=== PATIENT | female | born 1930 | race Caucasian/White ===

== ENCOUNTER → 2016-06-25 | Outpatient (CLI) | payer MEDICARE, OTHER ==
[2016-06-25 08:57] LABS: BILIRUBIN NEGATIVE (NEGATIVE); BLOOD NEGATIVE (NEGATIVE); CLARITY SL CLOUDY (CLEAR); COLOR YELLOW (YELLOW); GLUCOSE NEGATIVE (NEGATIVE); KETONE NEGATIVE (NEGATIVE); LEUKO ESTERASE 2+ (NEGATIVE); NITRITE POSITIVE (NEGATIVE); PH 5.5 (5.0-9.0); PROTEIN NEGATIVE (NEGATIVE); SPECIFIC GRAVITY 1.025 (1.005-1.030); UROBILINOGEN 0.2 E.U./dl (0.2-1.0)
[2016-06-25 09:12] LABS: BACTERIA 4+; RBC 0-2 rbc/hpf (0-2); URINE REFLEX COMMENT YES (NO); WBC 31-40 wbc/hpf (0-5)
[2016-06-25 09:18] LABS: URINE TP/CRE RATIO 0.1 (<0.21)
[2016-06-25 09:19] LABS: ALBUMIN 3.8 gm/dl (3.1-4.5); BUN 22 mg/dl (7-24); CARBON DIOXIDE 29 mmol/L (21-32); CHLORIDE 105 mmol/L (98-107); EST GLOM FILT AFRICAN AMERICAN > 60 ml/min; GLUCOSE 144 mg/dL (65-99); MAGNESIUM 1.8 mg/dL (1.5-2.1); PHOSPHOROUS 3.5 mg/dL (2.5-4.9); SODIUM 144 mmol/L (136-145)
[2016-06-25 09:30] LABS: PTH INTACT 97.3 pg/mL (14.0-72.0); VITAMIN D, 25-HYDROXY 54.7 ng/mL (30-100)
== END | disposition home or self-care (01) ==
LOC: LAB 02:17 → US 10:00
PROVIDERS: Internal Medicine Nephrology
DX: N18.3 Chronic kidney disease, stage 3 (moderate) (principal); N28.1 Cyst of kidney, acquired

== ENCOUNTER 2017-03-09 21:59 | Inpatient (IN) | payer MEDICARE, OTHER ==
[~2017-03-09] VITALS: Ht 170.1 cm; Wt 73.9 kg
--- NOTE | ~2017-03-09 | PR ---
[place], [place] PROGRESS NOTE NAME: ATIF PATEL UNIT #: [id number] ROOM: 404 DOCTOR: WEST FERNANDEZ,YIN BIRTHDATE: [birth year] DOS: 03/10/2017 REASON FOR VISIT: Abnormal EKG and syncope. SUBJECTIVE: The patient is feeling better today. Denies any chest pain, shortness of breath or dizziness. No fever and chills. No nausea or vomiting. No PND, no orthopnea. REVIEW OF SYSTEMS: Review of the 8 systems negative except as mentioned above. PHYSICAL EXAMINATION: VITAL SIGNS: Blood pressure 140/72, pulse 62 and respirations 18. RHYTHM STRIPS: Patient in sinus rhythm. Patient had one episode of nonsustained ventricular tachycardia around 7:00 p.m. yesterday, lasted about 3 seconds. GENERAL: Alert, comfortable, in no acute distress. HEENT: Pupils are round and equal. No jaundice. Tongue was moist. NECK: Supple, nondistended, no carotid bruit. CHEST: Symmetrical, nontender. LUNGS: Clear to auscultation bilaterally. HEART: Regular rhythm, no S3, grade 1/6 systolic murmur. ABDOMEN: Bowel sounds normal, nontender. EXTREMITIES: Showed no edema. Distal pulses palpable. SKIN: Warm and dry. No cyanosis, no clubbing. NEUROLOGIC: No focal neurologic deficit. GENITOURINARY: Deferred. Medications and labs reviewed. IMPRESSION: 1. Syncope, etiology unknown, possible hypotension versus bradyarrhythmia: 2. Nonsustained ventricular tachycardia, asymptomatic. 3. Left bundle branch block. 4. Hypertension. 5. Dyslipidemia. RECOMMENDATIONS: Her stress test and echo results were reviewed with the patient and her family members who were at bedside. We will start low-dose beta blockers for her hypertension and nonsustained V-tach and monitor her heart rate and blood pressures. She will need outpatient cardiac event monitor to rule out any bradyarrhythmias or tachyarrhythmias . If she developed recurrent syncope, consider tilt table test and EP referral. I had a long discussion with the patient and her family members who were at bedside regarding her left bundle branch block and nonsustained V-tach and [place], [place] PROGRESS NOTE NAME: ATIF PATEL UNIT #: [id number] ROOM: 404 DOCTOR: WEST FERNANDEZ,YIN BIRTHDATE: [birth year] further cardiac testing such as event monitor and tilt table testing due to syncope. Family also aware that if she develops recurrent ventricular arrhythmias, she will need cardiac catheterization to rule out underlying coronary artery disease. Followup visit in 1 month after event monitor. Patient is advised to check her heart rate and blood pressures at home and also contact [facility] for any palpitations, chest pains, or syncope. YIN DODSON MD CM:GOPI [id number] YIN DODSON MD 03/12/17 0156 interface
--- NOTE | ~2017-03-09 | EKG ---
[place], [place] ELECTROCARDIOGRAM REPORT NAME: ATIF PATEL UNIT #: [id number] ROOM: 404 DOCTOR: WEST FERNANDEZ,YIN BIRTHDATE: [birth year] DOS: 03/09/2017 TIME: 2203 hours. IMPRESSION: 1. Sinus rhythm. 2. Left bundle-branch block. YIN DODSON MD CM:EKGRPT:ELECTROCARDIOGRAM REPORT [id number] [id number] YIN DODSON MD
--- NOTE | ~2017-03-09 | ST ---
[place], [place] EXERCISE STRESS TEST REPORT NAME: ATIF PATEL UNIT #: [id number] ROOM: 404 DOCTOR: WEST FERNANDEZ,YIN BIRTHDATE: [birth year] DOS: 03/10/2017 LEXISCAN STRESS TEST REASON FOR TEST: The patient's syncope and abnormal EKG. PHYSICAL EXAMINATION NECK: Supple. LUNGS: Clear anteriorly. HEART: Regular rhythm. PROTOCOL: Lexiscan protocol. Maximum heart rate 92, peak blood pressure 140/80. SYMPTOMS: The patient is chest pain free. EKG: Resting EKG showed left bundle branch block. Stress EKG showed no ischemia, no arrhythmias. CONCLUSION: Clinically, the patient is chest pain free. EKG nonischemic, underlying left bundle branch block. POST-STRESS COMPLICATIONS: None. The patient received total of 0.4 mg of Lexiscan. YIN DODSON MD CM:STRESS:EXERCISE STRESS TEST REPORT [id number] [id number] YIN DODSON MD
--- NOTE | ~2017-03-09 | CON ---
[place], [place] REPORT OF CONSULTATION NAME: ATIF PATEL UNIT #: [id number] ROOM: 404 DOCTOR: YIN DODSON MD BIRTHDATE: [birth year] DOS: 03/10/2017 REASON FOR CONSULTATION: Syncope and abnormal EKG. HISTORY OF PRESENT ILLNESS: The patient is an 86-year-old patient with history of hypertension, dyslipidemia, diabetes, came to the Emergency Room with "syncope." Apparently, she did not eat during the daytime and anticipating going to [facility]. However, in the evening around 4:00, she did eat and after that she walked to the sink to wash her dishes and then suddenly got dizzy and then passed out, but no seizure-like activity, no bladder or bowel incontinence. This is the first time she ever had this kind of episode. Prior to passing out, she denied any chest pain, palpitations, nausea, or vomiting. Only her complaint is "some room spinning feeling and dizziness." She was brought to the Emergency Room and EKG showed left bundle-branch block. She was admitted for further evaluation and Cardiology was consulted due to her left bundle branch block and her syncope. She denies any chest pain or palpitations. No edema, no orthopnea. She is very active at home. No recent fever or chills. No hemoptysis, no cough, no hematuria or dysuria. No headache. No blurred vision or double vision, no neurologic symptoms. No musculoskeletal symptoms. REVIEW OF SYSTEMS: Review of the 8 systems negative except as mentioned above. PAST MEDICAL HISTORY: 1. Hypertension. 2. Dyslipidemia. 3. Diabetes type 2. SOCIAL HISTORY: The patient does not smoke or drink, does not use illicit drugs. SURGICAL HISTORY: Nil contributory. FAMILY HISTORY: Nil contributory. HOME MEDICATIONS: Reviewed. ALLERGIES: Reviewed. PHYSICAL EXAMINATION: VITAL SIGNS: Blood pressure 159/75, pulse 68, respiratory rate is 18. GENERAL: Alert, comfortable, in no acute disease. HEENT: Pupils are round and equal. No jaundice. Tongue was moist and pharynx was clear. NECK: Supple, no distended neck veins, no carotid bruit. CHEST: Symmetrical, nontender. LUNGS: Clear to auscultation bilaterally. HEART: Regular rhythm, no S3, grade 1-2/6 systolic murmur at the left sternal border. No palpable thrills. ABDOMEN: Benign, nontender. Bowel sounds normal. EXTREMITIES: Showed no edema. Distal pulses are palpable. [place], [place] REPORT OF CONSULTATION NAME: ATIF PATEL UNIT #: [id number] ROOM: [facility] DOCTOR: YIN DODSON MD BIRTHDATE: [birth year] SKIN: Warm and dry. No cyanosis, no clubbing. NEUROLOGIC: The patient is alert, oriented. No focal neurologic deficit. RECTAL: Deferred. GENITOURINARY: Deferred. Medications reviewed. Her labs including EKG, CBC, chemistry and imaging studies reviewed. EKG showed normal sinus rhythm with left bundle branch block. Hemoglobin 11.3. The cardiac troponins are negative x 2. Potassium 3.8, magnesium 1.7. IMPRESSION: 1. Syncope, etiology unknown, to rule out any hypotension or bradycardia. 2. Left bundle branch block, relatively new, possibly new. 3. Hypertension. 4. Dyslipidemia. 5. Diabetes type 2. RECOMMENDATIONS: She denies any chest pain or shortness of breath. She has no adin or tachyarrhythmia since her admission. Lexiscan stress test to rule out ischemia and also a 2D echo for LV function and valvular function. If the stress test and echo unremarkable, she can be discharged home today and will schedule for outpatient at least 48-hour Holter monitor or 2-4 weeks CardioNet event monitor. The above treatment plan of stress test echo and the heart monitor were discussed with the patient's and all questions were answered. The patient is aware that if she noted to have any significant bradycardia, she will need a permanent pacemaker. There is no family at the bedside at the time of my examination. YIN DODSON MD CM:CONSTR:REPORT OF CONSULTATION 1335 03/10/17 1412 interface
[2017-03-09 22:11] VITALS: BP 159/82
[2017-03-09 22:58] LABS: BASO % 0.3 % (0.0-1.0); EOS # 0.2 10*3/uL (0.0-0.4); EOS % 2.4 % (1.0-4.0); HEMATOCRIT 37.4 % (37.0-47.0); HEMOGLOBIN 12.2 g/dl (12.0-16.0); LYMPH # 2.1 10*3/uL (1.3-4.4); LYMPH % 21.1 % (27.0-41.0); MEAN CELL VOLUME 84.4 fl (81.0-99.0); MEAN CORPUSCULAR HGB 27.5 pg (27.0-31.0); MEAN CORPUSCULAR HGB CONC 32.6 g/dl (33.0-37.0); MEAN PLATELET VOLUME 10.9 fl (9.6-12.3); MONO # 0.9 10*3/uL (0.1-1.0); MONO % 8.9 % (3.0-9.0); NEUT # 6.6 10*3/uL (2.3-7.9); NEUT % 66.9 % (47.0-73.0); PLATELET COUNT AUTOMATED 260 10*3/uL (130-400); RED BLOOD COUNT 4.43 10*6/uL (4.10-5.10); WHITE BLOOD COUNT 9.8 10*3/uL (4.8-10.8)
[2017-03-09 23:14] LABS: ACT PARTIAL THROMBO TIME 24.6 SECONDS (20.8-31.5)
[2017-03-09] MEDS ORDERED: METFORMIN850 MG PO (23:14)
[2017-03-09] MEDS ORDERED: ENALAPRIL10 MG PO (23:15)
[2017-03-09] MEDS ORDERED: LOVASTATIN40 MG PO (23:16)
[2017-03-09 23:18] VITALS: BP 170/83
[2017-03-09 23:18] LABS: ALBUMIN 3.7 gm/dl (3.1-4.5); ALKALINE PHOSPHATASE 104 U/L (45-117); BUN 18 mg/dl (7-24); CHLORIDE 105 mmol/L (98-107); CREATININE 0.96 mg/dL (0.55-1.02); POTASSIUM 4.3 mmol/L (3.5-5.1); SGOT/AST 18 IU/L (3-35); SGPT/ALT 16 U/L (12-78); SODIUM 139 mmol/L (136-145); TOTAL PROTEIN 7.2 gm/dL (6.4-8.2)
[2017-03-09 23:19] LABS: TROPONIN I < 0.015 ng/ml (<0.045)
[2017-03-09 23:55] VITALS: BP 152/83
[2017-03-10] VITALS: BP 134/98; BP 149/68
[2017-03-10 03:04] LABS: BASO % 0.3 % (0.0-1.0); EOS # 0.1 10*3/uL (0.0-0.4); EOS % 1.1 % (1.0-4.0); HEMOGLOBIN 11.3 g/dl (12.0-16.0); LYMPH # 1.7 10*3/uL (1.3-4.4); LYMPH % 15.3 % (27.0-41.0); MEAN CELL VOLUME 84.5 fl (81.0-99.0); MEAN CORPUSCULAR HGB 27.3 pg (27.0-31.0); MEAN CORPUSCULAR HGB CONC 32.3 g/dl (33.0-37.0); MONO # 0.9 10*3/uL (0.1-1.0); MONO % 8.1 % (3.0-9.0); NEUT # 8.5 10*3/uL (2.3-7.9); NEUT % 74.8 % (47.0-73.0); PLATELET COUNT AUTOMATED 251 10*3/uL (130-400); RED BLOOD COUNT 4.14 10*6/uL (4.10-5.10); RED CELL DISTRI WIDTH 14.9 % (0-14.5); WHITE BLOOD COUNT 11.3 10*3/uL (4.8-10.8)
[2017-03-10 03:15] LABS: ACT PARTIAL THROMBO TIME 25.9 SECONDS (20.8-31.5)
[2017-03-10 03:22] LABS: ALBUMIN 3.4 gm/dl (3.1-4.5); ALKALINE PHOSPHATASE 97 U/L (45-117); BUN 16 mg/dl (7-24); CHLORIDE 108 mmol/L (98-107); CHOLESTEROL 159 mg/dL (<200); HDL CHOLESTEROL 79 mg/dl (40-60); LDL CHOLESTEROL 61 mg/dL (9-159); PHOSPHOROUS 2.9 mg/dL (2.5-4.9); POTASSIUM 3.8 mmol/L (3.5-5.1); SGOT/AST 14 IU/L (3-35); SGPT/ALT 13 U/L (12-78); SODIUM 144 mmol/L (136-145); TOTAL PROTEIN 6.5 gm/dL (6.4-8.2); TRIGLYCERIDES 93 mg/dl (<150); VLDL CHOLESTEROL 19 mg/dL (6-40)
[2017-03-10 03:23] LABS: FREE T4 1.19 ng/dl (0.76-1.46)
[2017-03-10 03:52] LABS: VITAMIN D, 25-HYDROXY 18.3 ng/mL (30-100)
[2017-03-10 08:00] VITALS: BP 159/75
[2017-03-10 14:00] VITALS: BP 144/62
[2017-03-10 16:00] VITALS: BP 156/65
[2017-03-10 18:56] LABS: BILIRUBIN NEGATIVE (NEGATIVE); BLOOD NEGATIVE (NEGATIVE); CLARITY SL CLOUDY (CLEAR); COLOR YELLOW (YELLOW); GLUCOSE NEGATIVE (NEGATIVE); KETONE NEGATIVE (NEGATIVE); LEUKO ESTERASE 1+ (NEGATIVE); NITRITE POSITIVE (NEGATIVE); PH 5.5 (5.0-9.0); UROBILINOGEN 0.2 E.U./dl (0.2-1.0)
[2017-03-10 19:13] LABS: BACTERIA 4+
[2017-03-10 19:15] LABS: WBC 21-30 wbc/hpf (0-5)
[2017-03-10 20:00] VITALS: BP 150/71
[2017-03-11] VITALS: BP 140/68
[2017-03-11 08:00] VITALS: BP 144/66
[2017-03-11] MEDS ORDERED: TOPROL XL25 MG PO (09:44)
[2017-03-11] MEDS ORDERED: AMINOPHYLLIN200 MG PO (09:47)
== END 2017-03-11 10:56 | disposition home or self-care (01) | DRG 690 ==
LOC: ED 21:59 → EDHOLD 23:16 → 4E 23:16
PROVIDERS: Hospitalist; Student in an Organized Health Care Education/Training Program
PROC: 4A02XM4 Measurement of Cardiac Total Activity, External Approach (ICD-10-PCS; principal; 2017-03-10)
PROC: 3E073KZ Introduction of Other Diagnostic Substance into Coronary Artery, Percutaneous Approach (ICD-10-PCS; principal; 2017-03-10)
DX: N30.00 Acute cystitis without hematuria (principal); I47.2 Ventricular tachycardia; E87.8 Other disorders of electrolyte and fluid balance, not elsewhere classified; E11.65 Type 2 diabetes mellitus with hyperglycemia; R65.10 Systemic inflammatory response syndrome (SIRS) of non-infectious origin without acute organ dysfunction; E83.51 Hypocalcemia; R55 Syncope and collapse; I44.7 Left bundle-branch block, unspecified; I10 Essential (primary) hypertension; Z98.49 Cataract extraction status, unspecified eye; Z79.84 Long term (current) use of oral hypoglycemic drugs; S00.83XA Contusion of other part of head, initial encounter; W18.39XA Other fall on same level, initial encounter; E78.00 Pure hypercholesterolemia, unspecified; Y93.89 Activity, other specified; Y92.89 Other specified places as the place of occurrence of the external cause; Y99.8 Other external cause status

== ENCOUNTER 2017-03-16 21:17 | Emergency (ER) | payer MEDICARE, OTHER ==
[~2017-03-16] VITALS: Ht 170.1 cm; Wt 68.0 kg
[~2017-03-16 21:17] MED LIST: AMINOPHYLLIN200 MG PO; ENALAPRIL10 MG PO; LOVASTATIN40 MG PO; METFORMIN850 MG PO; TOPROL XL25 MG PO
[2017-03-16 22:02] LABS: BASO % 0.4 % (0.0-1.0); EOS # 0.5 10*3/uL (0.0-0.4); EOS % 4.6 % (1.0-4.0); HEMATOCRIT 36.7 % (37.0-47.0); HEMOGLOBIN 11.9 g/dl (12.0-16.0); LYMPH # 2.8 10*3/uL (1.3-4.4); LYMPH % 28.4 % (27.0-41.0); MEAN CELL VOLUME 85.3 fl (81.0-99.0); MEAN CORPUSCULAR HGB 27.7 pg (27.0-31.0); MEAN CORPUSCULAR HGB CONC 32.4 g/dl (33.0-37.0); MEAN PLATELET VOLUME 10.8 fl (9.6-12.3); MONO % 10.6 % (3.0-9.0); NEUT # 5.4 10*3/uL (2.3-7.9); NEUT % 55.2 % (47.0-73.0); PLATELET COUNT AUTOMATED 299 10*3/uL (130-400); RED CELL DISTRI WIDTH 15.1 % (0-14.5); WHITE BLOOD COUNT 9.8 10*3/uL (4.8-10.8)
[2017-03-16 22:20] LABS: ALBUMIN 3.5 gm/dl (3.1-4.5); ALKALINE PHOSPHATASE 116 U/L (45-117); BUN 31 mg/dl (7-24); CHLORIDE 106 mmol/L (98-107); CREATININE 1.02 mg/dL (0.55-1.02); POTASSIUM 4.4 mmol/L (3.5-5.1); SGOT/AST 15 IU/L (3-35); SGPT/ALT 18 U/L (12-78); SODIUM 140 mmol/L (136-145); TOTAL PROTEIN 7.1 gm/dL (6.4-8.2)
[2017-03-16 22:21] LABS: TROPONIN I < 0.015 ng/ml (<0.045)
[2017-03-16 22:42] LABS: ACT PARTIAL THROMBO TIME 25.7 SECONDS (19.5-32.1); INTERNATIONAL NORM RATIO 0.9 (2.0-3.5)
== END 2017-03-16 23:02 | disposition home or self-care (01) ==
LOC: ED 21:17
PROVIDERS: Student in an Organized Health Care Education/Training Program
DX: I10 Essential (primary) hypertension (principal); E11.65 Type 2 diabetes mellitus with hyperglycemia; E78.00 Pure hypercholesterolemia, unspecified; Z79.84 Long term (current) use of oral hypoglycemic drugs; Z79.899 Other long term (current) drug therapy

== ENCOUNTER → 2017-07-03 | Outpatient (CLI) | payer MEDICARE, OTHER ==
[2017-07-03 11:55] LABS: BILIRUBIN NEGATIVE (NEGATIVE); BLOOD NEGATIVE (NEGATIVE); CLARITY SL CLOUDY (CLEAR); COLOR YELLOW (YELLOW); GLUCOSE NEGATIVE (NEGATIVE); KETONE NEGATIVE (NEGATIVE); LEUKO ESTERASE 2+ (NEGATIVE); NITRITE NEGATIVE (NEGATIVE); PH 5.5 (5.0-9.0); SPECIFIC GRAVITY <= 1.005 (1.005-1.030); UROBILINOGEN 0.2 E.U./dl (0.2-1.0)
[2017-07-03 12:05] LABS: URINE CREATININE RANDOM 26.3 mg/dL
[2017-07-03 12:14] LABS: BACTERIA 1+; EPITHELIAL CELLS 21-30; WBC 21-30 wbc/hpf (0-5); YEAST TRACE
[2017-07-03 12:23] LABS: ALBUMIN 3.8 gm/dl (3.1-4.5); BUN 14 mg/dl (7-24); CHLORIDE 104 mmol/L (98-107); CREATININE 0.92 mg/dL (0.55-1.02); POTASSIUM 3.9 mmol/L (3.5-5.1); SODIUM 139 mmol/L (136-145)
[2017-07-03 13:28] LABS: VITAMIN D, 25-HYDROXY 40.6 ng/mL (30-100)
[2017-07-03 13:29] LABS: PTH INTACT 110.9 pg/mL (14.0-72.0)
== END | disposition home or self-care (01) ==
LOC: LAB 11:23
PROVIDERS: Internal Medicine Nephrology
DX: I12.9 Hypertensive chronic kidney disease with stage 1 through stage 4 chronic kidney disease, or unspecified chronic kidney disease (principal); E11.22 Type 2 diabetes mellitus with diabetic chronic kidney disease; N18.3 Chronic kidney disease, stage 3 (moderate); N25.81 Secondary hyperparathyroidism of renal origin; Z79.899 Other long term (current) drug therapy

== ENCOUNTER → 2018-05-27 | Outpatient (CLI) | payer MEDICARE, OTHER | END | disposition home or self-care (01) | LOC: RAD 02:46 | DX: Z13.820 Encounter for screening for osteoporosis (principal); Z78.0 Asymptomatic menopausal state; R30.0 Dysuria; I15.2 Hypertension secondary to endocrine disorders; E55.9 Vitamin D deficiency, unspecified; E11.9 Type 2 diabetes mellitus without complications ==

== ENCOUNTER 2019-02-21 10:26 | Inpatient (IN) | payer MEDICARE, OTHER ==
[~2019-02-21] VITALS: Ht 170.2 cm; Wt 76.4 kg
[2019-02-21 10:26] VITALS: BP 137/66
[2019-02-21 10:53] LABS: BASO % 0.3 % (0.0-1.0); EOS # 0.3 10*3/uL (0.0-0.4); EOS % 2.5 % (1.0-4.0); HEMATOCRIT 37.3 % (37.0-47.0); HEMOGLOBIN 11.8 g/dl (12.0-16.0); LYMPH # 2.3 10*3/uL (1.3-4.4); LYMPH % 20.2 % (27.0-41.0); MEAN CELL VOLUME 88.2 fl (81.0-99.0); MEAN CORPUSCULAR HGB 27.9 pg (27.0-31.0); MEAN CORPUSCULAR HGB CONC 31.6 g/dl (33.0-37.0); MEAN PLATELET VOLUME 10.5 fl (9.6-12.3); MONO # 1.1 10*3/uL (0.1-1.0); MONO % 9.9 % (3.0-9.0); NEUT # 7.5 10*3/uL (2.3-7.9); NEUT % 66.3 % (47.0-73.0); PLATELET COUNT AUTOMATED 289 10*3/uL (130-400); RED BLOOD COUNT 4.23 10*6/uL (4.10-5.10); RED CELL DISTRI WIDTH 14.6 % (0-14.5); WHITE BLOOD COUNT 11.3 10*3/uL (4.8-10.8)
[2019-02-21 11:04] LABS: ACT PARTIAL THROMBO TIME 25.8 SECONDS (20.0-32.1); INTERNATIONAL NORM RATIO 0.9 (2.0-3.5)
[2019-02-21 11:12] LABS: ALBUMIN 3.4 gm/dl (3.1-4.5); CREATININE 1.07 mg/dL (0.55-1.02); POTASSIUM 4.5 mmol/L (3.5-5.1); TROPONIN I 0.021 ng/ml (<0.045)
[2019-02-21 11:13] LABS: LIPASE 124 U/L (73-393)
[2019-02-21 12:30] VITALS: BP 134/64
[2019-02-21 13:28] VITALS: BP 155/78
--- NOTE | 2019-02-21 13:28 | NUR ---
A 88, admitted to , under the services of LE Clark DO with a diagnosis of CHEST PAIN. Chief complaint is CHEST PAIN RADIATING TO RIGHT ARM. Patient arrived via bed from ER. Monitor applied. Initial assessment completed. Vital signs taken and recorded. LE CLARK DO notified of admission to the unit. Orders received. See assessment for past medical history, medications and allergies. Patient and/or family oriented to 4E unit. visitation policy reviewed. Clothing/patient valuable form completed. YADIRA GRACIA RN
[2019-02-21] MEDS ORDERED: VITAMIN D-32000 UNI1 PO (14:02)
[2019-02-21] MEDS ORDERED: ATENOLOL25 MG PO (14:03)
[2019-02-21] MEDS ORDERED: PRESERVISION A1 EAC1 PO (14:05)
[2019-02-21 16:00] VITALS: BP 132/71
[2019-02-21 20:00] VITALS: BP 133/62; BP 152/66
[2019-02-22] VITALS: BP 144/80
--- NOTE | 2019-02-22 | NUR ---
PATIENT RESTING WITH EYES CLOSED. RESPIRATIONS EASY AND UNLABORED. BED ALARM ON AND CALL LIGHT WITHIN REACH. WILL MONITOR.
--- NOTE | 2019-02-22 02:23 | NUR ---
PATIENT RESTING WITH EYES CLOSED. RESPIRATIONS EASY AND UNLABORED ON ROOM AIR. BED ALARM ON AND CALL LIGHT WITHIN REACH. WILL MONITOR.
[2019-02-22 06:31] LABS: BASO % 0.5 % (0.0-1.0); EOS # 0.3 10*3/uL (0.0-0.4); EOS % 3.6 % (1.0-4.0); HEMOGLOBIN 11.9 g/dl (12.0-16.0); LYMPH # 2.4 10*3/uL (1.3-4.4); LYMPH % 27.8 % (27.0-41.0); MEAN CELL VOLUME 86.7 fl (81.0-99.0); MEAN CORPUSCULAR HGB 27.9 pg (27.0-31.0); MEAN CORPUSCULAR HGB CONC 32.2 g/dl (33.0-37.0); MONO # 0.9 10*3/uL (0.1-1.0); MONO % 10.1 % (3.0-9.0); NEUT # 4.9 10*3/uL (2.3-7.9); NEUT % 57.2 % (47.0-73.0); PLATELET COUNT AUTOMATED 281 10*3/uL (130-400); RED BLOOD COUNT 4.27 10*6/uL (4.10-5.10); RED CELL DISTRI WIDTH 14.3 % (0-14.5); WHITE BLOOD COUNT 8.6 10*3/uL (4.8-10.8)
[2019-02-22 06:45] LABS: ALBUMIN 3.3 gm/dl (3.1-4.5); ALKALINE PHOSPHATASE 95 U/L (45-117); BUN 25 mg/dl (7-24); CHLORIDE 107 mmol/L (98-107); CHOLESTEROL 176 mg/dL (<200); CREATININE 0.95 mg/dL (0.55-1.02); FREE T4 1.08 ng/dl (0.76-1.46); HDL CHOLESTEROL 57 mg/dl (40-60); LDL CHOLESTEROL 87 mg/dL (9-159); PHOSPHOROUS 3.5 mg/dL (2.5-4.9); POTASSIUM 4.1 mmol/L (3.5-5.1); SGOT/AST 18 IU/L (3-35); SGPT/ALT 18 U/L (12-78); SODIUM 140 mmol/L (136-145); TOTAL PROTEIN 6.8 gm/dL (6.4-8.2); TRIGLYCERIDES 162 mg/dl (<150); VLDL CHOLESTEROL 32 mg/dL (6-40)
[2019-02-22 07:38] LABS: VITAMIN D, 25-HYDROXY 43.3 ng/mL (30-100)
[2019-02-22 09:30] VITALS: BP 138/80
--- NOTE | 2019-02-22 10:30 | NUR ---
Clinic Physician in to talk to patient. Patient states lives at home with her granddaughter. There are 10 steps in the home. Physician: Deejay Burger [facility]acy: [facility] Home health services: none Patient's level of ADLs: INDEPENDENT Patient has working utilities: yes DME: none Follow-up physician's appointment after d/c: will be made by the hospitalist nurse director upon discharge Does patient want to access PORTAL?: no Discharge plan discussed with patient. She lives at home with her granddaughter. She is independent in her ADLs and ambulation. Discussed home health care services and she denies any home needs. Family at bedside. When medically stable she will be discharged to home. Her family will provide transportation on discharge. GEOVANNA BECK
[2019-02-22 12:00] VITALS: BP 171/93
[2019-02-22] MEDS ORDERED: LIPITOR10 MG PO (13:21)
[2019-02-22] MEDS ORDERED: METOPROLOL SUCC25 M2 PO ×2 (13:21→16:35)
[2019-02-22] MEDS ORDERED: ASPIRIN ADULT L81 M2 PO ×2 (13:21→16:36)
--- NOTE | 2019-02-22 13:33 | NUR ---
Patient discharged. echo cancelled.
[2019-02-22] MEDS ORDERED: ATENOLOL25 MG PO (13:56)
[2019-02-22 16:00] VITALS: BP 174/69
--- NOTE | 2019-02-22 17:21 | NUR ---
PT AMBULATED OFF THE FLOOR WITH HER DAUGHTER. [facility]. DISCHARGE INSTRUCTIOSN REVIEWED. PT REFUSED WHEELCHAIR.
== END 2019-02-22 17:21 | disposition home or self-care (01) | DRG 391 ==
LOC: ED 10:26 → 4E 12:45 → 5E 12:45 → EDHOLD 12:45 → 4E 13:18 → 5E 02-22 09:02
PROVIDERS: Emergency Medicine; Hospitalist; ADMIT Internal Medicine
DX: K21.9 Gastro-esophageal reflux disease without esophagitis (principal); N17.0 Acute kidney failure with tubular necrosis; E87.2 Acidosis; D72.829 Elevated white blood cell count, unspecified; E11.9 Type 2 diabetes mellitus without complications; E78.5 Hyperlipidemia, unspecified; I10 Essential (primary) hypertension; Z66 Do not resuscitate; Z51.5 Encounter for palliative care; D64.9 Anemia, unspecified; F03.90 Unspecified dementia, unspecified severity, without behavioral disturbance, psychotic disturbance, mood disturbance, and anxiety; I44.7 Left bundle-branch block, unspecified; Z79.82 Long term (current) use of aspirin; Z79.84 Long term (current) use of oral hypoglycemic drugs; Z82.49 Family history of ischemic heart disease and other diseases of the circulatory system